=== PATIENT | male | born 1995 | race Caucasian/White ===

== ENCOUNTER 2019-06-08 15:42 | Inpatient (IN) | payer BC, OTHER ==
[~2019-06-08 15:42] MED LIST: Dexamethasone 20 MG/5 ML VIAL ONE; Glycopyrrolate 0.2 MG/ML 5 ML SYRINGE ONE; Ketorolac Tromethamine 30 MG/ML VIAL ONE; Lidocaine 1% PF 5 ML VIAL ONE; Ondansetron PF 4 MG/2 ML Vial ONE; PROPOFOL 200 MG/20 ML VIAL ONE; Rocuronium Bromide 10 MG/ML (10ML VIAL) ONE; Succinylcholine Chloride 20 MG/ML 10 ml SYRINGE FS ONE
[2019-06-08] MEDS ORDERED: Ondansetron PF 4 MG/2 ML Vial ONE (15:48)
[2019-06-08] MEDS ORDERED: Adacel (T-DAP) 0.5 ML SYRINGE ONE (15:48)
[2019-06-08] MEDS ORDERED: Morphine 4 MG/ML VIAL ONE (15:48)
[2019-06-08] MEDS ORDERED: Clindamycin/D5W 600 mg/50 ml Premix Bag ONE (15:49)
--- NOTE | 2019-06-08 16:20 | RAD ---
EXAM: XR Forearm Lt 2 View STANDARD PROVIDED CLINICAL HISTORY: Trauma COMPARISON: None FINDINGS: Comminuted fracture of the distal radial diaphysis with apex ulnar angulation at the fracture site. D isplaced fracture of the distal ulnar diaphysis with fracture fragment overriding and approximately one shaft's width radial displacement of the distal fragment. Alignment at the wrist and elbow appear normal. IMPRESSION: Distal radial and ulnar fractures.
[2019-06-08] MEDS ORDERED: Gentamicin 80 MG/2 ML VIAL ONE (16:49)
[2019-06-08] MEDS ORDERED: metroNIDAZOLE 500 MG/100 ML BAG ONE (16:49)
[2019-06-08] MEDS ORDERED: Neomycin-Polymyxin 1 ML AMP ONE (16:52)
[2019-06-08] MEDS ORDERED: Fentanyl 100 MCG/2 ML VIAL ONE ×2 (16:59→20:07)
[2019-06-08] MEDS ORDERED: Midazolam HCl 2 mg/2 ml Vial ONE (16:59)
[2019-06-08] MEDS ORDERED: metroNIDAZOLE 500 MG in Premix Bag 1 BAG IVPB SCH (17:00)
[2019-06-08] MEDS ORDERED: HYDROmorphone 0.5 MG/0.5 ML SYRINGE ONE (17:03)
--- NOTE | 2019-06-08 18:06 | HP ---
REQUESTING PHYSICIAN: Dr. Nieves. ATTENDING SURGEON: Dr. Do. CONSULTATION: Orthopedics, Dr. Heller. 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 The patient was able to have the machine stop and was able to get his arm out of the machinery, and he was brought to the emergency department by POV. The patient underwent evaluation and examination and was noted to have an open both-bone forearm fracture of his right arm, at which time we were asked to evaluate the patient for admission and obtain Orthopedic consultation. The patient denied loss of consciousness or any other injuries. ALLERGIES: PENICILLIN. CURRENT MEDICATIONS: None. PAST MEDICAL HISTORY: None. PAST SURGICAL HISTORY: Lipoma excision from neck. 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 PHYSICAL EXAMINATION: VITAL SIGNS: Blood pressure 140/87, heart rate 83, respirations 16, oxygen saturation is 98% on room air, and temperature is 98.6. GENERAL: The patient is resting comfortably in bed. He is awake, alert, and oriented x3. Jammie Coma Scale is 15. HEENT: Unremarkable. Head is normocephalic and atraumatic. Eyes, extraocular motion intact. PERRLA bilaterally. Ears are atraumatic without discharge. Nose is atraumatic without discharge. Oropharynx is clear. NECK: Nontender. Trachea is midline with no JVD. CHEST: Clear to auscultation with good inspiratory and expiratory effort. HEART: Regular rate and rhythm. ABDOMEN: Soft, flat, nontender with active bowel sounds. PELVIS: Stable. EXTREMITIES: Neurovascularly intact x4. Right upper extremity has obvious angulation and open fracture to right forearm. The sensation and pulses are intact, both radial and ulnar. The patient also has good capillary refill, less than 2 to 3 seconds. BACK: Atraumatic and nontender. LABORATORY DATA: There are no labs to review. RADIOGRAPHS: Views of the right forearm show markedly angulated radial and ulnar fractures of the diaphysis of both bones. ASSESSMENT: 1. Status post farm machinery accident. 2. Open both-bone forearm fracture of the right upper extremity. 3. Acute pain secondary to above. PLAN: The patient was evaluated by Orthopedics in the emergency department. He will be taken to the operating room urgently. His tetanus was updated, and antibiotics were initiated in the emergency department. Per Orthopedics, the plan will be open reduction and internal fixation after irrigation and debridement of his wounds and currently planned for return irrigation and debridement on Tuesday. The patient will have continued antibiotics. Postoperatively, we will do pain management, pulmonary toilet, gastritis, mechanical VTE prophylaxis. We will have the patient evaluated by Occupational Therapy and start the walking program. Evaluation, examination, laboratory, and radiographic findings will be discussed with Dr. Do after this dictation. Job ID: [id number]
--- NOTE | 2019-06-08 19:27 | RAD ---
EXAM: 2 views of the left forearm HISTORY: Fracture fixation of the forearm COMPARISON: None FINDINGS: Limited intraoperative fluoroscopic views show plates and screws spanning the fractures of the distal aspect of the radius and ulna. No perihardware lucency is seen. IMPRESSION: Status post ORIF left radius and ulnar fractures without evidence of complication.
[2019-06-08] MEDS ORDERED: traMADol HCl 50 MG TAB PO PRN ×2 (19:39)
[2019-06-08] MEDS ORDERED: hydrALAZINE 20 MG/ML VIAL SLOW IVP PRN (19:39)
[2019-06-08] MEDS ORDERED: Ondansetron ODT 4 MG TAB PO PRN (19:39)
[2019-06-08] MEDS ORDERED: Cyclobenzaprine 10 MG TAB PO PRN (19:39)
[2019-06-08] MEDS ORDERED: Acetaminophen 1,000 MG in Premix Bag 1 BAG IVPB SCH (19:39)
[2019-06-08] MEDS ORDERED: Dextrose 50% Abboject 50 ML SYRINGE SLOW IVP PRN (19:39)
[2019-06-08] MEDS ORDERED: Dextrose 5% in Water 1,000 ML IV PRN (19:39)
[2019-06-08] MEDS ORDERED: Ondansetron PF 4 MG/2 ML Vial IVP PRN (19:39)
[2019-06-08] MEDS ORDERED: Promethazine HCl 25 MG/ML VIAL IM PRN ×3 (19:39→20:01)
[2019-06-08] MEDS ORDERED: Meperidine HCl/PF 25 MG/ML VIAL ONE (19:56)
[2019-06-08] MEDS ORDERED: HYDROmorphone 2 MG/ML VIAL SLOW IVP PRN (20:01)
[2019-06-08] MEDS ORDERED: Ondansetron HCl/PF 4 MG/2 ML Vial IVP PRN (20:01)
[2019-06-08] MEDS ORDERED: Meperidine HCl/PF 25 MG/ML VIAL SLOW IVP PRN (20:01)
[2019-06-08] MEDS ORDERED: Promethazine HCl 25 MG/ML VIAL SLOW IVP PRN (20:01)
[2019-06-08] MEDS ORDERED: PACU-Morphine 4MG/ML VIAL SLOW IVP PRN (20:01)
--- NOTE | 2019-06-08 20:23 | CON ---
DATE OF CONSULTATION: 06/08/2019 Dictating on behalf of Reddy Heller MD. REQUESTING PHYSICIAN: Dr. Nieves CONSULTING PHYSICIAN: Reddy Heller MD. REASON FOR CONSULTATION: Left open both-bone forearm fracture. HISTORY OF PRESENT ILLNESS: This is a 23-year-old male, who was working with a piece of farm machinery, pulling a hose into roll when a piece of clothing got caught and pulled his left upper extremity into it. He was able to stop the machine and get his arm out. He was brought to the emergency department by private vehicle. Upon ER evaluation, the patient was noted to have an open both-bone forearm fracture of his left arm. For that reason, we have been consulted. The patient denies any other injuries at this time. He currently denies any numbness or tingling. He reports that he broke this arm as a child multiple times. PAST MEDICAL HISTORY: The patient denies. ALLERGIES: INCLUDE PENICILLIN. PAST SURGICAL HISTORY: Lipoma excision from the neck. SOCIAL HISTORY: The patient denies any drug, tobacco, or alcohol use, and lives independently at home. 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 PHYSICAL EXAMINATION: VITAL SIGNS: Blood pressure 140/87, heart rate of 83, respirations 16, O2 saturation is 98% on room air, temperature 98.6. GENERAL: The patient is awake and alert. He is resting comfortably in bed in the ER. He is in no apparent distress. Family is present at bedside. He is pleasant and cooperative with exam. HEENT: Normocephalic and atraumatic. NECK: Supple. Trachea midline. RESPIRATIONS: Breathing is nonlabored. EXTREMITIES: The left upper extremity has obvious open injury to the dorsal aspect of the distal third of the forearm. This measures approximately 4 cm in length. There is soft tissue protruding from the space. The patient is able to move all digits. He is able to flex and extend all five digits. Strength is not assessed. Capillary refill 2 seconds, intact. Sensation intact distally. Compartments appear soft at this time. RADIOGRAPHIC FINDINGS: Including views of the left forearm show angulated radial and ulnar fractures in the distal third of both bones. ASSESSMENT: Left radius and ulna shaft fractures, open. PLAN: The patient was taken to the operating room emergently. We will irrigate and debride his wounds. Open reduction and internal fixation of both radius and ulna. Plan will be for the patient to return back to the operating room on Tuesday for a repeat irrigation and debridement secondary to the contamination of his wounds. The patient was placed on antibiotics including clindamycin, Flagyl, and gentamicin. We will continue these antibiotics until we return to the operating room on Tuesday morning. Plan of care discussed with the patient and his family today. They verbalized understanding. The patient was admitted to the Trauma Service. Job ID: [id number] [facility]
[2019-06-08] MEDS ORDERED: Ketorolac Tromethamine 30 MG/ML VIAL IVP SCH (21:00)
[2019-06-08] MEDS: Ibuprofen 800 MG TAB PO SCH (21:23)
[2019-06-08] MEDS: Famotidine 20 MG TAB PO SCH (21:24)
[2019-06-08] MEDS: Sodium Chloride 0.9% 1,000 ML IV SCH (21:24)
[2019-06-08] MEDS ORDERED: Gentamicin 80 MG/2 ML VIAL IVPB ONE (22:00)
[2019-06-08 22:11] VITALS: BMI 24.8
[2019-06-08] MEDS: Acetaminophen 500 MG TAB PO SCH (23:53)
[2019-06-09] MEDS: metroNIDAZOLE 500 MG in Premix Bag 1 BAG IVPB SCH ×3 (00:01→17:54)
--- NOTE | 2019-06-09 01:24 | PRG ---
DATE OF SERVICE: SUBJECTIVE: Mr. Gilmore is a 23-year-old male who came into the ER for evaluation of the right upper extremity pain which is status post farm machinery accident. He underwent ORIF of the right upper extremity this afternoon. Postop, the patient reports doing good. Pain is well controlled. He developed no fever or shortness of breath. OBJECTIVE: GENERAL: The patient is lying down in bed comfortably with no acute respiratory distress. LUNGS: Clear bilaterally. HEART: Regular rate and rhythm. ABDOMEN: Soft, nondistended. EXTREMITIES: Right upper extremity dressing and splint are intact and dry. Neurovascular of the right finger is intact. Lower extremity and left upper extremity, neurovascularly intact. Normal range of motion. PLAN: Continue supportive care. Continue pain control. Continue DVT and gastritis prophylaxis. Anticipate the patient will be working with OT tomorrow. Job ID: [id number]
[2019-06-09] MEDS: Acetaminophen 500 MG TAB PO SCH ×3 (05:37→17:11)
[2019-06-09] MEDS: Ibuprofen 800 MG TAB PO SCH ×3 (05:38→21:32)
[2019-06-09 06:33] LABS: #Lymphocytes 0.8 thou/uL (1.20-3.40); #Monocytes 1.2 thou/uL (0.11-0.59); #Neutrophils 12.6 thou/uL (1.40-6.50); %Basophils 0.1 % (0.0-1.0); %Eosinophils 0.1 % (0.0-10.0); %Lymphocytes 5.2 % (21.0-51.0); %Monocytes 7.9 % (0.0-10.0); %Neutrophils 86.7 % (42.0-75.0); Hemoglobin 14.4 g/dL (14.0-18.0); Mean Corpuscular HGB CONC 35.1 g/dL (32.0-36.0); Mean Corpuscular Hemoglobin 30.3 pg (27.0-31.0); Mean Corpuscular Volume 86.1 fL (78.0-98.0); Mean Platelet Volume 8.5 fL (7.4-10.4); Platelet Count 157 thou/uL (130-400); RBC Distribution Width 11.3 % (11.5-14.5); Red Blood Cell (RBC) Count 4.77 mill/uL (4.70-6.10); White Blood Cell (WBC) Count 14.6 thou/uL (4.8-10.8)
[2019-06-09 06:51] LABS: Anion Gap 11 mmol/L (10-20); BUN (Urea Nitrogen) 12 mg/dL (8.9-20.6); Calc. Creatinine Clearance 159 mL/min (70-130); Calcium 9.1 mg/dL (7.8-10.44); Carbon Dioxide 24 mmol/L (22-29); Chloride 106 mmol/L (98-107); Estimated GFR-MDRD Greater than 90; Glucose 126 mg/dL (70-105); Sodium 137 mmol/L (136-145)
[2019-06-09] MEDS: Famotidine 20 MG TAB PO SCH ×2 (07:59→21:32)
[2019-06-09] MEDS: Clindamycin/D5W 900 MG in Premix Bag 1 BAG IVPB SCH ×3 (07:59→17:11)
[2019-06-09] MEDS: Sodium Chloride 0.9% 1,000 ML IV SCH (08:08)
[2019-06-09] MEDS: Gentamicin 80 MG/2 ML VIAL IM SCH ×3 (09:02→17:12)
--- NOTE | 2019-06-09 15:29 | PRG ---
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 Yesterday, he underwent irrigation and debridement and open reduction and internal fixation of his fractures. He tolerated this procedure well. Overnight, had no issues. Currently, the patient is tolerating a diet. His pain is controlled. Per Orthopedics, the plan is to take him back for a second washout tomorrow and then he will most likely be able to be discharged home. OBJECTIVE: VITAL SIGNS: Temperature is 97.6, heart rate 80, blood pressure 116/77, respirations 14, and oxygen saturation 97% on room air. GENERAL: The patient is resting comfortably in bed. He has been seen multiple times outside his room ambulating. HEENT: Unremarkable. LUNGS: Clear to auscultation with good inspiratory and expiratory effort. HEART: Regular rate and rhythm. ABDOMEN: Soft, flat, and nontender with active bowel sounds. EXTREMITIES: Neurovascularly intact x4. Right upper extremity splint dressing is clean, dry, and intact. LABORATORY FINDINGS: White blood cell count 14.6, hemoglobin 14.4, hematocrit 41.1, and platelets 157. Sodium 137, potassium 4.0, chloride 106, CO2 of 24, BUN 12, creatinine 0.85, and glucose 126. There are no radiographs reviewed this morning. ASSESSMENT AND PLAN: 1. Status post farming accident. 2. Status post open right forearm fracture, status post irrigation and debridement and open reduction and internal fixation of same. 3. Acute traumatic pain, improved. PLAN: Plan will be to continue supportive care, n.p.o. after midnight and per orthopedic plan, repeat irrigation and debridement in the morning and likely discharge later that afternoon. The patient was evaluated this morning with Dr. Do at rounds. Job ID: [id number]
--- NOTE | 2019-06-10 00:07 | PRG ---
DATE OF SERVICE: 06/09/2019 SUBJECTIVE: Mr. Gilmore is a 23-year-old male, who came to the ER for evaluation of right upper extremity pain, which is status post farm machinery accident. He underwent ORIF of right upper extremity yesterday. Postop, the patient is doing good. Pain is well controlled. He developed no fever or shortness of breath. OBJECTIVE: VITAL SIGNS: Stable. GENERAL: The patient is lying down in bed comfortably with no acute distress. LUNGS: Clear bilaterally. HEART: Regular rate and rhythm. ABDOMEN: Soft, nondistended. EXTREMITIES: Right upper extremity dressing clean, intact, and dry. Neurovascularly intact x4. PLAN: Will be to continue supportive care. Continue pain control. Continue DVT gastritis prophylaxis. Continue working with OT tomorrow. Job ID: [id number]
[2019-06-10] MEDS: Acetaminophen 500 MG TAB PO SCH ×3 (00:21→06:25)
[2019-06-10] MEDS: Ibuprofen 800 MG TAB PO SCH (06:25)
[2019-06-10] MEDS ORDERED: HYDROmorphone 0.5 MG/0.5 ML SYRINGE ONE (07:36)
[2019-06-10] MEDS ORDERED: Midazolam HCl 2 mg/2 ml Vial ONE (07:50)
[2019-06-10] MEDS ORDERED: Promethazine HCl 25 MG/ML VIAL IM PRN (08:26)
[2019-06-10] MEDS ORDERED: Promethazine HCl 25 MG/ML VIAL SLOW IVP PRN (08:26)
[2019-06-10] MEDS ORDERED: Meperidine HCl/PF 25 MG/ML VIAL SLOW IVP PRN (08:26)
[2019-06-10] MEDS ORDERED: Ketorolac Tromethamine 30 MG/ML VIAL IVP PRN (08:26)
[2019-06-10] MEDS ORDERED: Ondansetron HCl/PF 4 MG/2 ML Vial IVP PRN (08:26)
[2019-06-10] MEDS ORDERED: Clindamycin/D5W 900 mg/50 ml Premix Bag ONE (08:28)
[2019-06-10] MEDS: Famotidine 20 MG TAB PO SCH (09:00)
[2019-06-10] MEDS ORDERED: Lidocaine 1% PF 5 ML VIAL ONE (10:12)
[2019-06-10] MEDS ORDERED: PROPOFOL 200 MG/20 ML VIAL ONE (10:12)
[2019-06-10] MEDS ORDERED: Dexamethasone 20 MG/5 ML VIAL ONE (10:12)
[2019-06-10] MEDS ORDERED: Ondansetron PF 4 MG/2 ML Vial ONE (10:12)
[2019-06-10] MEDS ORDERED: Ketorolac Tromethamine 30 MG/ML VIAL ONE (10:12)
[2019-06-10 10:20] VITALS: BP 134/87; TEMP 97.8
--- NOTE | 2019-06-11 10:39 | OP ---
DATE OF PROCEDURE: 06/08/2019 PREOPERATIVE DIAGNOSIS: Comminuted open fracture, grade 2, left arm with gross contamination. POSTOPERATIVE DIAGNOSIS: Comminuted open fracture, grade 2, left arm with gross contamination. PROCEDURES PERFORMED: Irrigation and debridement of radius and ulnar fractures. Open reduction and internal fixation of radius and ulna. PAINT PREPARER: Martin. BLOOD LOSS: Minimal. SPECIMEN: None. DRAINS: None. COMPLICATION: None. DESCRIPTION OF PROCEDURE: The patient was taken to the operating room, where general anesthesia was induced. Left arm was prepped and draped in usual sterile fashion. I opened up the old traumatic laceration extended proximally and distally and delivered bone fragments into the defect. I used curettes to scrape the end of the bone. I used a total of 10 L of irrigation to clean the bone fragments. The radius was then approached through a Sanjiv approach. There was a large butterfly fragment. This was fixed with two lag screws. I then anatomically reduced the fracture and placed a 9-hole Synthes LC-DCP plate and compressed multiple screw holes. I got good compression in the plate. There was some comminution on the dorsal side. There was very good bony approximation on the volar side. The ulna was anatomically reduced and plated with a 2.7 locking plate. I did not use locking screws, I used plain bone screws and compressed the fracture. Irrigation was performed again. The subcutaneous tissue was closed with 2-0 Vicryl. I did leave the open portion of the traumatic wound open. Skin was closed with Prolene. Sterile dressings were applied. The patient was placed in a bulky splint. Job ID: [id number]
--- NOTE | 2019-06-11 10:48 | OP ---
DATE OF PROCEDURE: 06/10/2019 PREOPERATIVE DIAGNOSIS: Open left forearm fracture. POSTOPERATIVE DIAGNOSIS: Open left forearm fracture. PROCEDURE PERFORMED: Irrigation and debridement of left open forearm fracture. ANESTHESIA: General. ESTIMATED BLOOD LOSS: Minimal. SPECIMENS: None. DRAINS: None. COMPLICATIONS: None. DESCRIPTION OF PROCEDURE: The patient was taken to the operating room, where general anesthesia was induced. His left arm was prepped and draped in usual sterile fashion. I removed the sutures from his open wound, side of his arm and post removal, it had been left open. Irrigation was performed. I irrigated bone, removed some skin and curetted the bone and removed a little bit of muscle, which was questionable. Irrigation was performed with pulsatile lavage irrigation. I closed the wound including the previously opened portion of the wound. Sterile dressing was applied. The patient was placed in a short-arm splint. Job ID: [id number]
--- NOTE | 2019-06-11 15:03 | DIS ---
DATE OF ADMISSION: 06/08/2019 DATE OF DISCHARGE: 06/10/2019 ADMISSION DIAGNOSES: 1. Status post farm machinery accident. 2. Open both-bone forearm fracture of left upper extremity. 3. Acute pain secondary to above. CONSULTATIONS: Orthopedics, Dr. Heller. PROCEDURES: 1. Irrigation and debridement of left upper extremity open both-bone forearm fracture. 2. Open reduction and internal fixation of left upper extremity both-bone forearm fracture. SUMMARY: The patient is a 23-year-old man, who was working on a farm machinery with rolls of hose that caught his left upper extremity and pulled him into it. He was able to be extricated from the machinery and he was brought by a privately owned vehicle to the emergency department, where he underwent evaluation and examination and noted to have left upper extremity open fracture. He was taken urgently to the operating room for his first irrigation and debridement and his open reduction and internal fixation of same. The patient tolerated the procedure well and as planned went back 48 hours later for repeat irrigation and debridement, which again he tolerated well. At the time of discharge, the patient was ambulating without difficulty. His pain was controlled. He is tolerating a diet and he will follow up with Dr. Heller in 2 weeks, sooner as needed. The patient may follow up with the Trauma Clinic as needed. Job ID: [id number]
== END 2019-06-10 12:15 | disposition home or self-care (01) | DRG 502 ==
LOC: ERS 15:42 → SDC 16:49 → SURG A 20:44
PROVIDERS: ADMIT Surgery; ATTEND Surgery
PROC: 0PSJ04Z Reposition Left Radius with Internal Fixation Device, Open Approach (ICD-10-PCS; principal; 2019-06-08)
PROC: 0PSL04Z Reposition Left Ulna with Internal Fixation Device, Open Approach (ICD-10-PCS; 2019-06-08)
PROC: 0KD80ZZ Extraction of Left Upper Arm Muscle, Open Approach (ICD-10-PCS; 2019-06-10)
DX: S52.92XB Unspecified fracture of left forearm, initial encounter for open fracture type I or II (principal); W31.89XA Contact with other specified machinery, initial encounter; Y93.89 Activity, other specified; Y92.89 Other specified places as the place of occurrence of the external cause; Z88.0 Allergy status to penicillin
CPT/HCPCS: 36415; 76000; 80048; 85025; 90715; C1713; J1100; J1170; J1580; J1885; J2001; J2175; J2250; J2270; J2405; J2704; J3010; J3490

== ENCOUNTER 2020-09-17 16:43 | Emergency (ER) | payer BC ==
[2020-09-17] MEDS ORDERED: Lidocaine 1% w/Epinephrine 1:100K 20 ML VIAL ONE (17:58)
--- NOTE | 2020-09-17 18:05 | RAD ---
XR Knee Lt 4 View STANDARD: 09/17/2020 5:14 PM CLINICAL INDICATION: History of left knee laceration COMPARISON: None. FINDINGS: Bones: There is an 8.8 mm oval lucency involving the superior and lateral aspect of the patella whic h is nonspecific and may reflect a small subchondral cystlike abnormality. No acute fracture or subluxation is demonstrated. Joints: No joint capsular distention.. Soft Tissue: No acute abnormality.. No radiopaque foreign body. IMPRESSION: No acute osseous abnormality.. Small 8.8 mm oval lucency involving the superior and lateral aspect of the patella is nonspecific and may reflect a small subchondral cystlike abnormality related to overlying articular cartilage defect. If clinically indicated further evaluation with a nonemergent MRI of the left knee would be h elpful for improved characterization.
== END 2020-09-17 19:12 | disposition home or self-care (01) ==
LOC: ERS 16:43
DX: S81.012A Laceration without foreign body, left knee, initial encounter (principal); W45.8XXA Other foreign body or object entering through skin, initial encounter
CPT/HCPCS: 12032